=== PATIENT | male | born 1975 | race African-American/Black ===

== ENCOUNTER 2018-06-09 07:35 | Emergency (ER) | payer BC ==
[~2018-06-09] VITALS: Ht 162.6 cm; Wt 83.9 kg
[2018-06-09 07:51] VITALS: BP 167/96
--- NOTE | 2018-06-09 08:42 | RAD ---
3 view right and left shoulder 06/09/2018 Clinical indication: Bilateral shoulder pain for 10 years, popping sensation of the shoulders. COMPARISON: None. FINDINGS: Right shoulder: There is no acute fracture or traumatic malalignment. Moderate inferior right glenohumeral osteoarthrosis with inferior joint space narrowing and osteophytic formation. There is subchondral cysts and sclerosis at the greater tuberosity without significant subacromial space narrowing. The acromioclavicular articulation is intact. The visualized soft tissues are unremarkable. Left shoulder: No acute fracture or traumatic malalignment. Joint spaces maintained. The periarticular soft tissues are unremarkable. Normal bony alignment. IMPRESSION: Right shoulder: 1. Advanced, moderate, right glenohumeral osteoarthrosis. 2. Findings suggestive of underlying rotator cuff pathology. Left shoulder: 1. No acute osseous abnormality. Electronically signed by: Matti López MD (06/09/2018 8:37 AM) [facility]
[2018-06-09] MEDS ORDERED: TRAM50TA PO (09:25)
[2018-06-09] MEDS ORDERED: PRED20TA PO (09:25)
--- NOTE | 2018-06-09 09:25 | PHYS DOC ---
Past Medical History Past Medical History: No Pertinent History Past Surgical History: No Surgical History Alcohol Use: None Drug Use: None Adult General Chief Complaint Chief Complaint: [facility] HPI Patient is a 42 year old presented to the ER today for evaluation of bilateral shoulder pain, worse on the right side than left side that he has been dealing with off and on for several months, hurt worse when he woke up in the morning, no fever, no recent injury. Patient said about 20 years ago, he dislocated both of his shoulders from lifting weight. Patient said he has have pain in these shoulder since. He was seen by a doctor about 20 years ago but have not seen anyone recently. Review of Systems Review of Systems Constitutional: Denies fever or chills [] Eyes: Denies change in visual acuity, redness, or eye pain [] HENT: Denies nasal congestion or sore throat [] Respiratory: Denies cough or shortness of breath [] Cardiovascular: No additional information not addressed in HPI [] GI: Denies abdominal pain, nausea, vomiting, bloody stools or diarrhea [] : Denies dysuria or hematuria [] Musculoskeletal: Denies back pain , positive joint pain [] Integument: Denies rash or skin lesions [] Neurologic: Denies headache, focal weakness or sensory changes [] Endocrine: Denies polyuria or polydipsia [] All other systems were reviewed and found to be within normal limits, except as documented in this note. Allergies Allergies Allergies Coded Allergies Type Severity Reaction Last Updated Verified No Known Drug Allergies 06/09/18 No Physical Exam Physical Exam Constitutional: Well developed, well nourished, no acute distress, non-toxic appearance. [] HENT: Normocephalic, atraumatic, bilateral external ears normal, oropharynx moist, no oral exudates, nose normal. [] Eyes: PERRLA, EOMI, conjunctiva normal, no discharge. [] Neck: Normal range of motion, no tenderness, supple, no stridor. [] Cardiovascular:Heart rate regular rhythm, no murmur [] Lungs & Thorax: Bilateral breath sounds clear to auscultation [] Abdomen: Bowel sounds normal, soft, no tenderness, no masses, no pulsatile masses. [] Skin: Warm, dry, no erythema, no rash. [] Back: No tenderness, no CVA tenderness. [] Extremities: No tenderness, no cyanosis, no clubbing, ROM intact, no edema. [] Neurologic: Alert and oriented X 3, normal motor function, normal sensory function, no focal deficits noted. [] Psychologic: Affect normal, judgement normal, mood normal. [] Current Patient Data Vital Signs Vital Signs Date Time Temp Pulse Resp B/P (MAP) Pulse Ox O2 Delivery O2 Flow Rate FiO2 06/09/18 07:51 98.2 76 16 167/96 (119) 99 Room Air 98.2 EKG EKG [] Radiology/Procedures Radiology/Procedures [][facility] [address] [place] [address] IMAGING REPORT Signed PATIENT: ELISE JOINER ACCOUNT: [id number] : 1975 LOCATION: ER AGE: 42 SEX: M EXAM STATUS: REG ER ORD. PHYSICIAN: JAVIER MCCAIN DO REASON: shoulder pain X 10 years, lifting weights and felt like shoulders popped ou PROCEDURE: SHOULDER BILAT 2+V 3 view right and left shoulder 06/09/2018 Clinical indication: Bilateral shoulder pain for 10 years, popping sensation of the shoulders. COMPARISON: None. FINDINGS: Right shoulder: There is no acute fracture or traumatic malalignment. Moderate inferior right glenohumeral osteoarthrosis with inferior joint space narrowing and osteophytic formation. There is subchondral cysts and sclerosis at the greater tuberosity without significant subacromial space narrowing. The acromioclavicular articulation is intact. The visualized soft tissues are unremarkable. Left shoulder: No acute fracture or traumatic malalignment. Joint spaces maintained. The periarticular soft tissues are unremarkable. Normal bony alignment. IMPRESSION: Right shoulder: 1. Advanced, moderate, right glenohumeral osteoarthrosis. 2. Findings suggestive of underlying rotator cuff pathology. Left shoulder: 1. No acute osseous abnormality. Electronically signed by: Maddie López MD (06/09/2018 8:37 AM) [facility] DICTATED and SIGNED BY: MADDIE LÓPEZ MD DATE: 06/09/18 0835 Course & Med Decision Making Course & Med Decision Making Pertinent Labs and Imaging studies reviewed. (See chart for details) [] Dragon Disclaimer Dragon Disclaimer This electronic medical record was generated, in whole or in part, using a voice recognition dictation system. Departure Departure Impression: Primary Impression: DJD of both shoulders Disposition: HOME, SELF-CARE Condition: STABLE Referrals: JA HAN II, MD PLEASE CALL THIS ORTHOPEDIC SURGEON FOR FURTHER EVALUATION OF YOUR SHOULDERS PROBLEM Patient Instructions: Arthritis, Degenerative-Brief Scripts Prednisone (PREDNISONE) 20 Mg Tablet 20 MG PO DAILY, #10 TAB Prov: JAVIER MCCAIN DO 06/09/18 Tramadol Hcl (TRAMADOL HCL) 50 Mg Tablet 50 MG PO Q4HRS PRN for PAIN for 5 Days, #25 TAB Prov: JAVIER MCCAIN DO 06/09/18 JAVIER MCCAIN DO Jun 09, 2018 09:25
== END 2018-06-09 09:34 | disposition home or self-care (01) ==
LOC: ER 07:35
DX: M19.012 Primary osteoarthritis, left shoulder (principal); M19.011 Primary osteoarthritis, right shoulder
CPT/HCPCS: 73030; 99283

== ENCOUNTER 2021-08-28 13:08 | Emergency (ER) | payer BC ==
[~2021-08-28] VITALS: Ht 165.1 cm; Wt 88.7 kg
[~2021-08-28 13:08] MED LIST: PRED20TA PO; TRAM50TA PO
[2021-08-28] MEDS ORDERED: LIDOCAINE 1% Multi-Dose 20 ML VIAL. INJ ONE (13:45)
[2021-08-28] MEDS ORDERED: DIPHTH,PERTUSS(ACELL),TET TOX 0.5 ML DISP.SYRIN. VAX IM ONE (13:45)
--- NOTE | 2021-08-28 14:01 | PHYS DOC ---
Past Medical History Past Medical History: No Pertinent History Past Surgical History: Other Additional Past Surgical Histo: carpal tunnel Smoking Status: Never Smoker Alcohol Use: None Drug Use: None General Adult EDM: Chief Complaint: LACERATION/AVULSION HPI: HPI: Patient is a 46-year-old male who presents today with a laceration to the base of the thumb. 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 He states this happened about 830 today, he states that the reason he came in is because it continues to bleed and cause some issues. Patient states he does not know when his last tetanus shot was. Review of Systems: Review of Systems: Constitutional: Denies fever or chills. [] Eyes: Denies change in visual acuity. [] HENT: Denies nasal congestion or sore throat. [] Respiratory: Denies cough or shortness of breath. [] Cardiovascular: Denies chest pain or edema. [] GI: Denies abdominal pain, nausea, vomiting, bloody stools or diarrhea. [] : Denies dysuria. [] Musculoskeletal: Denies back pain or joint pain. [] Integument: Laceration to the base of the right thumb Neurologic: Denies headache, focal weakness or sensory changes. [] Endocrine: Denies polyuria or polydipsia. [] Lymphatic: Denies swollen glands. [] Psychiatric: Denies depression or anxiety. [] Heart Score: C/O Chest Pain: No Risk Factors: Risk Factors: DM, Current or recent (<one month) smoker, HTN, HLP, family history of CAD, obesity. Risk Scores: Score 0 - 3: 2.5% MACE over next 6 weeks - Discharge Home Score 4 - 6: 20.3% MACE over next 6 weeks - Admit for Clinical Observation Score 7 - 10: 72.7% MACE over next 6 weeks - Early Invasive Strategies Current Medications: Current Medications Medications (Trade) Dose Ordered Sig/Albaro Start Time Stop Time Status Last Admin Dose Admin Diphtheria/ Tetanus/Acell Pertussis (Boostrix) 0.5 ml ONCE ONCE 08/28/21 13:45 08/28/21 13:46 DC Lidocaine HCl (Lidocaine 1% 20ml Vial) 20 ml 1X ONCE 08/28/21 13:45 08/28/21 13:46 DC Allergies: Allergies: Allergies Coded Allergies Type Severity Reaction Last Updated Verified No Known Drug Allergies 06/09/18 No Physical Exam: PE: Constitutional: Well developed, well nourished, no acute distress, non-toxic appearance. [] HENT: Normocephalic, atraumatic, bilateral external ears normal, oropharynx moist, no oral exudates, nose normal. [] Eyes: PERRLA, EOMI, conjunctiva normal, no discharge. [] Neck: Normal range of motion, no tenderness, supple, no stridor. [] Cardiovascular:Heart rate regular rhythm, no murmur [] Lungs & Thorax: Bilateral breath sounds clear to auscultation [] Abdomen: Bowel sounds normal, soft, no tenderness, no masses, no pulsatile masses. [] Skin: Laceration to the right thumb base, V-shaped in shape, 1 cm x 1 cm on the sides. Back: no tenderness, no CVA tenderness. [] Extremities: Patient has a V shaped laceration measuring 1 cm x 1 cm to the base of the right thumb, no active bleeding at this time, neurovascular is intact distal to the injury, patient's range of motion is within normal limits cap refills less than 2 seconds. Neurologic: Alert and oriented X 3, normal motor function, normal sensory function, no focal deficits noted. [] Psychologic: Affect normal, judgement normal, mood normal. [] Current Patient Data: Vital Signs: Vital Signs Date Time Temp Pulse Resp B/P (MAP) Pulse Ox O2 Delivery O2 Flow Rate FiO2 08/28/21 13:16 98.6 88 18 143/3 (49) 98 Room Air 98.6 EKG: EKG: [] Radiology/Procedures: Radiology/Procedures: Indication: Laceration to base of right thumb Procedure: The patient was placed in the appropriate position and anesthesia around the the laceration using lidocaine 1%. The area was area was cleansed with Betadine solution. The laceration was closed using six 3-0 Ethilon sutures interrupted. The wound area was then dressed with nonadherant dressing and coban. Total repaired wound length: V-shaped laceration 1 side of the laceration was 2 cm the other side was 1 cm The patient tolerated the procedure well Complications: None Course & Med Decision Making: Course & Med Decision Making Pertinent Labs and Imaging studies reviewed. (See chart for details) Area was sutured using 3-0 Ethilon, dressing was applied by nursing staff, patient's tetanus was updated while here in the emergency department and due to the conditions the patient was working and patient will be placed on cephalexin 500 mg for 7 days. Sutures are to be removed in 7 to 10 days either by the emergency department or by the primary care physician. Dustin Disclaimer: Dustin Disclaimer: This electronic medical record was generated, in whole or in part, using a voice recognition dictation system. Departure Departure Impression: Primary Impression: Laceration Disposition: HOME / SELF CARE / HOMELESS Condition: STABLE Referrals: NO PCP (PCP) Patient Instructions: Laceration Care, Adult Additional Instructions: Keep the wound clean and dry avoid overextending the thumb due to the location of the laceration Cleanse wound twice daily with mild soap and water watching for any signs of symptoms of infection Suture removal in 7 to 10 days you may either return here to the emergency department or follow-up with your primary care physician to have this sutures out Return to the emergency department for any signs and symptoms of infection which may include redness, increased pain, increased swelling, or development of a fever. [facility] [address] [place] [address] [facility] [address] [place] [address] [facility] [address] [facility] [place] [address] [email or web address] [address] [place] [address] [facility] [place] [address] [facility] [address] [place] [address] [facility] [address] [place] [address] [facility] [address] [place] [address] [facility] [address] [place] [address] [facility] [address] [place] [address] Scripts Cephalexin (CEPHALEXIN) 500 Mg Tablet 1 CAP PO BID, #[id number] CAP Prov: MIMA TOMPKINS APRN 08/28/21 MIMA TOMPKINS APRN Aug 28, 2021 14:01
[2021-08-28] MEDS ORDERED: CEPH500T PO (14:31)
[2021-08-28 14:35] VITALS: BP 136/72
== END 2021-08-28 14:35 | disposition home or self-care (01) ==
LOC: ER 13:08
DX: S61.011A Laceration without foreign body of right thumb without damage to nail, initial encounter (principal); Y28.8XXA Contact with other sharp object, undetermined intent, initial encounter; Y93.89 Activity, other specified; Y92.69 Other specified industrial and construction area as the place of occurrence of the external cause; Y99.0 Civilian activity done for income or pay
CPT/HCPCS: 12002; 90471; 90715; 99283; J3490